=== PATIENT | male | born 1995 | race Caucasian/White ===

== ENCOUNTER 2018-02-28 12:06 | Emergency (ER) | payer OTHER ==
[~2018-02-28] VITALS: Ht 198.1 cm; Wt 170.1 kg
[2018-02-28] MEDS ORDERED: IBUP600 PO (14:04)
[2018-02-28] MEDS ORDERED: Robaxin500 MG PO (14:04)
== END 2018-02-28 14:12 | disposition home or self-care (01) ==
LOC: ER 12:06
DX: S03.41XA Sprain of jaw, right side, initial encounter (principal); F17.200 Nicotine dependence, unspecified, uncomplicated; X58.XXXA Exposure to other specified factors, initial encounter; Y93.89 Activity, other specified
CPT/HCPCS: 70100; 99283-25

== ENCOUNTER 2018-04-26 08:55 | Emergency (ER) | payer SELFPAY ==
[~2018-04-26] VITALS: Ht 200.7 cm; Wt 170.1 kg
[~2018-04-26 08:55] MED LIST: IBUP600 PO; Robaxin500 MG PO
[2018-04-26 10:01] LABS: Influenza A Negative (NEGATIVE); Influenza B Negative (NEGATIVE)
[2018-04-26] MEDS ORDERED: MONDOXYNE NL100 MG PO (10:07)
[2018-04-26] MEDS ORDERED: Mucinex D 1,201 EACH PO (10:07)
== END 2018-04-26 10:19 | disposition home or self-care (01) ==
LOC: ER 08:55
PROVIDERS: Physician Assistant
DX: J32.9 Chronic sinusitis, unspecified (principal); F17.200 Nicotine dependence, unspecified, uncomplicated
CPT/HCPCS: 87804; 99283

== ENCOUNTER 2019-04-27 10:38 | Emergency (ER) | payer OTHER ==
[~2019-04-27] VITALS: Ht 198.1 cm; Wt 154.2 kg
[~2019-04-27 10:38] MED LIST changes: +MONDOXYNE NL100 MG PO; +Mucinex D 1,201 EACH PO
[2019-04-27] MEDS ORDERED: Monodox100 MG PO (13:16)
== END 2019-04-27 13:21 | disposition home or self-care (01) ==
LOC: ER 10:38
DX: S60.451A Superficial foreign body of left index finger, initial encounter (principal); L08.9 Local infection of the skin and subcutaneous tissue, unspecified; Z87.891 Personal history of nicotine dependence; W45.8XXA Other foreign body or object entering through skin, initial encounter
CPT/HCPCS: 10120; 73130; 99283-25

== ENCOUNTER 2020-06-10 07:45 | Emergency (ER) | payer SELFPAY ==
[~2020-06-10] VITALS: Ht 198.1 cm; Wt 172.4 kg
[~2020-06-10 07:45] MED LIST changes: +Monodox100 MG PO
[2020-06-10] MEDS ORDERED: Prednisone20 MG PO (08:49)
[2020-06-10] MEDS ORDERED: AMOCLA875 PO (08:49)
== END 2020-06-10 09:13 | disposition home or self-care (01) ==
LOC: ER 07:45
DX: K04.7 Periapical abscess without sinus (principal); K01.1 Impacted teeth; F17.210 Nicotine dependence, cigarettes, uncomplicated
CPT/HCPCS: 99282; A9270; J1100

== ENCOUNTER 2020-08-31 07:31 | Observation (INO) | payer SELFPAY ==
[~2020-08-31] VITALS: Ht 198.1 cm; Wt 167.8 kg
[~2020-08-31 07:31] MED LIST changes: +AMOCLA875 PO; +Prednisone20 MG PO
[2020-08-31 08:31] LABS: BASOPHILS ABSOLUTE AUTO 0.04 K/mm3 (0.00-0.23); BASOPHILS PERCENT AUTO 0 % (0-2); EOSINOPHILS ABSOLUTE AUTO 0.12 K/mm3 (0.00-0.68); EOSINOPHILS PERCENT AUTO 1 % (0-6); Hematocrit 43.4 % (37.0-53.0); Hemoglobin 14.6 g/dL (13.5-17.5); IMMATURE GRAN ABSOLUTE AUTO 0.02 K/mm3 (0.00-0.10); IMMATURE GRAN PERCENT AUTO 0 % (0-1); LYMPHOCYTES PERCENT AUTO 14 % (21-46); MONOCYTES ABSOLUTE AUTO 0.83 K/mm3 (0.16-1.47); MONOCYTES PERCENT AUTO 9 % (4-13); Mean Corpuscular HGB 27.5 pg (26.0-34.0); Mean Corpuscular HGB Conc 33.6 g/dL (31.5-36.5); Mean Corpuscular Volume 82 fL (80-100); Mean Platelet Volume 11.8 fL (9.1-12.4); NEUTROPHILS ABSOLUTE AUTO 6.73 K/mm3 (1.96-9.15); NEUTROPHILS PERCENT AUTO 75 % (41-73); Platelet Count 162 K/mm3 (150-400); RDW Coefficient Variation 11.9 % (11.7-14.2); RDW Standard Deviation 35.8 fL (35.1-46.3); White Blood Cell Count 9.04 K/mm3 (4.00-11.30)
[2020-08-31 08:53] LABS: Alanine Aminotransfer (ALT/SGP 101 U/L (12-78); Albumin, Blood 3.7 g/dL (3.4-5.0); Albumin/Globulin Ratio 0.9 (0.8-1.8); Alk Phos 76 U/L (50-136); Anion Gap 4 mmol/L (6-16); Aspartate Aminotrans (AST/SGOT 41 U/L (12-37); Bilirubin, Total 1.1 mg/dL (0.1-1.0); Blood Urea Nitrogen 9 mg/dL (8-24); CO2, Blood 26 mmol/L (21-32); Chloride, Blood 107 mmol/L (98-108); Globulin, Blood 3.9 g/dL (2.2-4.0); Glomerular Filtration Rate >60 (60-); Glucose, Blood 105 mg/dL (70-99); Potassium, Blood 3.8 mmol/L (3.5-5.5); Sodium, Blood 137 mmol/L (136-145); Total Protein, Blood 7.6 g/dL (6.4-8.2)
[2020-08-31 10:39] LABS: SARS-Cov-2 (COVID-19) PCR, MMC NEGATIVE (NEGATIVE)
--- NOTE | 2020-08-31 15:08 | NUR ---
ARRIVED TO ROOM VIA W/C, ORIENTED TO ROOM AND CALL LIGHT, THEN PT WAS TAKEN TO DAY SURGERY.
--- NOTE | 2020-08-31 16:30 | NUR ---
DR MAST TO BEDSIDE, PLAN TO RESCHEDULE CASE UNTIL TOMORROW. PT VERBALIZES UNDERSTANDING. IV FLUIDS D/C, PT BACK TO [facility]. RN NOTIFIED.
[2020-08-31] MEDS ORDERED: POTASSIUM PO (16:57)
[2020-08-31] MEDS ORDERED: MAGNESIUM GLU27.5 M1 PO (16:57)
[2020-08-31] MEDS ORDERED: ZYRTEC10 M4 PO (16:59)
--- NOTE | 2020-08-31 17:17 | NUR ---
SUMMARY DR. MAST WAS NOT ABLE TO DO PT'S SURGERY TODAY, PT BROUGHT BACK TO ROOM FROM DAY SURGERY, DENIES ANY PAIN AT THIS TIME, INDEPENDENT IN ROOM, NPO AFTER MN FOR SURGERY TOMORROW, PT AWARE OF PLAN.
[2020-09-01 04:51] LABS: BASOPHILS ABSOLUTE AUTO 0.03 K/mm3 (0.00-0.23); BASOPHILS PERCENT AUTO 0 % (0-2); EOSINOPHILS ABSOLUTE AUTO 0.22 K/mm3 (0.00-0.68); EOSINOPHILS PERCENT AUTO 3 % (0-6); Hematocrit 38.3 % (37.0-53.0); Hemoglobin 12.8 g/dL (13.5-17.5); IMMATURE GRAN ABSOLUTE AUTO 0.03 K/mm3 (0.00-0.10); IMMATURE GRAN PERCENT AUTO 0 % (0-1); LYMPHOCYTES ABSOLUTE AUTO 1.62 K/mm3 (0.84-5.20); LYMPHOCYTES PERCENT AUTO 19 % (21-46); MONOCYTES ABSOLUTE AUTO 0.91 K/mm3 (0.16-1.47); MONOCYTES PERCENT AUTO 11 % (4-13); Mean Corpuscular HGB 27.9 pg (26.0-34.0); Mean Corpuscular HGB Conc 33.4 g/dL (31.5-36.5); Mean Corpuscular Volume 84 fL (80-100); Mean Platelet Volume 11.9 fL (9.1-12.4); NEUTROPHILS ABSOLUTE AUTO 5.61 K/mm3 (1.96-9.15); NEUTROPHILS PERCENT AUTO 67 % (41-73); Platelet Count 142 K/mm3 (150-400); RDW Coefficient Variation 11.8 % (11.7-14.2); RDW Standard Deviation 35.5 fL (35.1-46.3); Red Blood Cell Count 4.58 M/mm3 (4.30-5.90); White Blood Cell Count 8.42 K/mm3 (4.00-11.30)
[2020-09-01 05:12] LABS: Anion Gap 3 mmol/L (6-16); Blood Urea Nitrogen 9 mg/dL (8-24); Bun/Creatinine Ratio 8.7 (12.0-20.0); CO2, Blood 30 mmol/L (21-32); Calcium, Blood 8.1 mg/dL (8.5-10.1); Chloride, Blood 104 mmol/L (98-108); Creatinine, Blood 1.04 mg/dL (0.60-1.20); Glomerular Filtration Rate >60 (60-); Glucose, Blood 108 mg/dL (70-99); Potassium, Blood 3.6 mmol/L (3.5-5.5); Sodium, Blood 137 mmol/L (136-145)
--- NOTE | 2020-09-01 06:07 | NUR ---
PT VSS T/O NIGHT. PAIN MGD W/2 NORCO W/REP RELIEF. PT HAD NO C/O N/V, IS VOIDING URINE W/O DIFFICULTY. PT NPO POST MIDNIGHT FOR PLAN FOR SURGERY TODAY; IVF AND ABX CONT PER ORDERS.
--- NOTE | 2020-09-01 09:07 | NUR ---
A&OX4, C/O PAIN ON R ABD, MEDICATED WITH IV DILAUDID, DENIES ANY NAUSEA, PT CURRENTLY SLEEPING, AWAKENS EASILY, STATES PAIN IS "BETTER" CONT. TO MONITOR FOR ANY CHANGES.
--- NOTE | 2020-09-01 12:23 | NUR ---
PT IN DAY SURGERY.
--- NOTE | 2020-09-01 16:00 | NUR ---
POST OP S/P LAP APPY, AWAKE, DENIES ANY NEED FOR PAIN MEDS AT THIS TIME, DENIES ANY NAUSEA, ABD LAP INCISIONS C/D/I X3, ICE CHIPS AND CLEAR LIQUIDS GIVEN, CONT. TO MONITOR VS AND ANY CHANGES.
--- NOTE | 2020-09-01 17:44 | NUR ---
SUMMARY VSS, PT AMBULATED DOWN THE HALLS X2, TOLERATING DIET WELL, DENIES ANY NEED FOR PAIN MEDS, ABD DSGS C/D/I, PT WANTS TO GO HOME TONDR. [facility] NOTIFIED, CURRENTLY IN THE OR, NO ACUTE CHANGES THIS SHIFT.
--- NOTE | 2020-09-02 04:29 | NUR ---
POD 1 S/P LAP APPY. PT VSS T/O NIGHT. DRESSINGS CDI. PAIN MGD W/PO PAIN MEDS W/REP RELIEF. PT KADY REG PO, REP +FLATUS AND 1 SM ALL BM, IS VOIDING URINE W/O DIFFICULTY. PT AMB IN HALLS, KADY WELL. PT AWAKE FOR MOST OF NIGHT, IS PLEASANT AND COOPERATIVE W/CARE, IS EAGER TO D/C HOME TODAY.
[2020-09-02] MEDS ORDERED: HYDR1TAB94 PO (13:26)
== END 2020-09-02 14:42 | disposition home or self-care (01) ==
LOC: ER 07:31 → SURS 07:32 → ER 12:52 → SURS 12:52 → ER 09-01 07:33 → SURS 09-01 07:33
PROVIDERS: Emergency Medicine; Physician Assistant; ADMIT Surgery
DX: K35.33 Acute appendicitis with perforation, localized peritonitis, and gangrene, with abscess (principal); Z87.891 Personal history of nicotine dependence; Z91.038 Other insect allergy status; Z91.048 Other nonmedicinal substance allergy status; Z20.822 Contact with and (suspected) exposure to COVID-19
CPT/HCPCS: 36415; 74176; 80048; 80053; 83690; 85025; 88304; 96365; 96375; 96376; 99285-25; A9270; G0378; J1100; J1170; J1885; J2250; J2270; J2405; J2543; J2704; J3010; J7030; J7120; U0004

== ENCOUNTER 2020-09-10 16:32 | Emergency (ER) | payer SELFPAY ==
[~2020-09-10] VITALS: Ht 198.1 cm; Wt 167.8 kg
[~2020-09-10 16:32] MED LIST changes: +HYDR1TAB94 PO; +MAGNESIUM GLU27.5 M1 PO; +POTASSIUM PO; +ZYRTEC10 M4 PO
[2020-09-10 17:56] LABS: BASOPHILS ABSOLUTE AUTO 0.04 K/mm3 (0.00-0.23); BASOPHILS PERCENT AUTO 1 % (0-2); EOSINOPHILS ABSOLUTE AUTO 0.19 K/mm3 (0.00-0.68); EOSINOPHILS PERCENT AUTO 3 % (0-6); Hematocrit 43.7 % (37.0-53.0); Hemoglobin 14.7 g/dL (13.5-17.5); IMMATURE GRAN ABSOLUTE AUTO 0.02 K/mm3 (0.00-0.10); IMMATURE GRAN PERCENT AUTO 0 % (0-1); LYMPHOCYTES ABSOLUTE AUTO 1.43 K/mm3 (0.84-5.20); LYMPHOCYTES PERCENT AUTO 20 % (21-46); MONOCYTES ABSOLUTE AUTO 0.54 K/mm3 (0.16-1.47); MONOCYTES PERCENT AUTO 7 % (4-13); Mean Corpuscular HGB 27.7 pg (26.0-34.0); Mean Corpuscular HGB Conc 33.6 g/dL (31.5-36.5); Mean Corpuscular Volume 83 fL (80-100); Mean Platelet Volume 12.3 fL (9.1-12.4); NEUTROPHILS ABSOLUTE AUTO 5.04 K/mm3 (1.96-9.15); NEUTROPHILS PERCENT AUTO 69 % (41-73); Platelet Count 180 K/mm3 (150-400); RDW Coefficient Variation 11.8 % (11.7-14.2); RDW Standard Deviation 35.3 fL (35.1-46.3); White Blood Cell Count 7.26 K/mm3 (4.00-11.30)
[2020-09-10 18:11] LABS: Alanine Aminotransfer (ALT/SGP 105 U/L (12-78); Albumin, Blood 3.8 g/dL (3.4-5.0); Alk Phos 84 U/L (50-136); Anion Gap 6 mmol/L (6-16); Aspartate Aminotrans (AST/SGOT 57 U/L (12-37); Bilirubin, Total 0.5 mg/dL (0.1-1.0); Blood Urea Nitrogen 16 mg/dL (8-24); Bun/Creatinine Ratio 16.1 (12.0-20.0); CO2, Blood 27 mmol/L (21-32); Calcium, Blood 9.1 mg/dL (8.5-10.1); Chloride, Blood 106 mmol/L (98-108); Creatinine, Blood 0.99 mg/dL (0.60-1.20); Glomerular Filtration Rate >60 (60-); Glucose, Blood 102 mg/dL (70-99); Potassium, Blood 3.8 mmol/L (3.5-5.5); Sodium, Blood 139 mmol/L (136-145); Total Protein, Blood 7.8 g/dL (6.4-8.2)
[2020-09-10] MEDS ORDERED: CEPH500 PO (20:33)
== END 2020-09-10 20:53 | disposition home or self-care (01) ==
LOC: ER 16:32
PROVIDERS: Physician Assistant
DX: T81.49XA Infection following a procedure, other surgical site, initial encounter (principal); L03.311 Cellulitis of abdominal wall; Z91.030 Bee allergy status; Z91.09 Other allergy status, other than to drugs and biological substances; Z79.899 Other long term (current) drug therapy; Z87.891 Personal history of nicotine dependence
CPT/HCPCS: 36415; 74177; 80053; 85025; 99283-25; A9270; Q9967

== ENCOUNTER 2021-11-03 20:49 | Emergency (ER) | payer OTHER ==
[~2021-11-03] VITALS: Ht 200.7 cm; Wt 122.5 kg
[~2021-11-03 20:49] MED LIST changes: +CEPH500 PO
[2021-11-04] MEDS ORDERED: IBU800 MG PO (00:58)
== END 2021-11-04 01:30 | disposition home or self-care (01) ==
LOC: ER 20:49
DX: S63.601A Unspecified sprain of right thumb, initial encounter (principal); Z87.891 Personal history of nicotine dependence; Z79.899 Other long term (current) drug therapy; Z91.038 Other insect allergy status; Z91.018 Allergy to other foods; W23.0XXA Caught, crushed, jammed, or pinched between moving objects, initial encounter; Y99.0 Civilian activity done for income or pay
CPT/HCPCS: 73140; 99283-25

== ENCOUNTER 2022-01-29 07:08 | Emergency (ER) | payer SELFPAY ==
[~2022-01-29] VITALS: Ht 198.1 cm; Wt 124.7 kg
[~2022-01-29 07:08] MED LIST changes: +IBU800 MG PO
[2022-01-29 07:54] LABS: BASOPHILS ABSOLUTE AUTO 0.05 K/mm3 (0.00-0.23); BASOPHILS PERCENT AUTO 1 % (0-2); EOSINOPHILS ABSOLUTE AUTO 0.19 K/mm3 (0.00-0.68); EOSINOPHILS PERCENT AUTO 3 % (0-6); Hematocrit 47.2 % (37.0-53.0); Hemoglobin 15.8 g/dL (13.5-17.5); IMMATURE GRAN ABSOLUTE AUTO 0.01 K/mm3 (0.00-0.10); IMMATURE GRAN PERCENT AUTO 0 % (0-1); LYMPHOCYTES ABSOLUTE AUTO 1.76 K/mm3 (0.84-5.20); LYMPHOCYTES PERCENT AUTO 26 % (21-46); MONOCYTES ABSOLUTE AUTO 0.49 K/mm3 (0.16-1.47); MONOCYTES PERCENT AUTO 7 % (4-13); Mean Corpuscular HGB 28.5 pg (26.0-34.0); Mean Corpuscular HGB Conc 33.5 g/dL (31.5-36.5); Mean Corpuscular Volume 85 fL (80-100); Mean Platelet Volume 12.2 fL (9.1-12.4); NEUTROPHILS ABSOLUTE AUTO 4.17 K/mm3 (1.96-9.15); NEUTROPHILS PERCENT AUTO 63 % (41-73); Platelet Count 189 K/mm3 (150-400); RDW Coefficient Variation 11.9 % (11.7-14.2); RDW Standard Deviation 36.6 fL (35.1-46.3); Red Blood Cell Count 5.55 M/mm3 (4.30-5.90); White Blood Cell Count 6.67 K/mm3 (4.00-11.30)
[2022-01-29 08:12] LABS: Source, Urine Clean Catch
[2022-01-29 08:19] LABS: Appearance, Urine Clear (Clear); Bilirubin, Urine Neg (Neg); Blood, Urine Neg (Neg); Color, Urine Yellow (P-Yellow); Glucose Qualitative, Urine Neg (Neg); Ketones, Urine Neg (Neg); Leukocyte Esterase, Urine Neg (Neg); Nitrite, Urine Neg (Neg); Protein, Urine Neg (Neg); Specific Gravity, Urine 1.015 (1.003-1.022); Urobilinogen, Urine NORM (Normal); pH, Urine 6.5 (5.0-8.0)
[2022-01-29 08:41] LABS: Albumin, Blood 4.3 g/dL (3.4-5.0); Albumin/Globulin Ratio 1.2 (0.8-1.8); Bilirubin, Total 0.6 mg/dL (0.1-1.0); Bun/Creatinine Ratio 10.7 (12.0-20.0); Creatinine, Blood 0.84 mg/dL (0.60-1.20); Globulin, Blood 3.5 g/dL (2.2-4.0); Potassium, Blood 3.9 mmol/L (3.5-5.5); Total Protein, Blood 7.8 g/dL (6.4-8.2)
[2022-01-29] MEDS ORDERED: HYDR1TAB94 PO (08:50)
== END 2022-01-29 09:02 | disposition home or self-care (01) ==
LOC: ER 07:08
PROVIDERS: Emergency Medicine
DX: R10.9 Unspecified abdominal pain (principal); R91.1 Solitary pulmonary nodule; Z91.030 Bee allergy status; Z79.899 Other long term (current) drug therapy; Z87.891 Personal history of nicotine dependence
CPT/HCPCS: 36415; 74176; 80053; 81003; 85025; A9270; J1885; J7030

== ENCOUNTER 2022-03-23 07:10 | Emergency (ER) | payer SELFPAY ==
[~2022-03-23] VITALS: Ht 185.4 cm; Wt 117.9 kg
[2022-03-23] MEDS ORDERED: AMOCLA875 PO (07:44)
== END 2022-03-23 07:58 | disposition home or self-care (01) ==
LOC: ER 07:10
DX: K08.89 Other specified disorders of teeth and supporting structures (principal); Z91.030 Bee allergy status; Z91.018 Allergy to other foods; Z87.891 Personal history of nicotine dependence
CPT/HCPCS: A9270; J1885

== ENCOUNTER 2024-10-15 14:23 | Emergency (ER) | payer OTHER ==
[~2024-10-15] VITALS: Ht 200.7 cm; Wt 169.2 kg
[2024-10-15 14:57] LABS: BASOPHILS ABSOLUTE AUTO 0.06 K/mm3 (0.00-0.23); BASOPHILS PERCENT AUTO 1 % (0-2); EOSINOPHILS ABSOLUTE AUTO 0.26 K/mm3 (0.00-0.68); EOSINOPHILS PERCENT AUTO 3 % (0-6); Hematocrit 44.8 % (37.0-53.0); Hemoglobin 15.6 g/dL (13.5-17.5); IMMATURE GRAN ABSOLUTE AUTO 0.02 K/mm3 (0.00-0.10); IMMATURE GRAN PERCENT AUTO 0 % (0-1); LYMPHOCYTES ABSOLUTE AUTO 1.41 K/mm3 (0.84-5.20); LYMPHOCYTES PERCENT AUTO 18 % (21-46); MONOCYTES ABSOLUTE AUTO 0.63 K/mm3 (0.16-1.47); MONOCYTES PERCENT AUTO 8 % (4-13); Mean Corpuscular HGB Conc 34.8 g/dL (31.5-36.5); Mean Corpuscular Volume 87 fL (80-100); NEUTROPHILS ABSOLUTE AUTO 5.35 K/mm3 (1.96-9.15); NEUTROPHILS PERCENT AUTO 69 % (41-73); NRBC ABSOLUTE 0.00 K/mm3 (0.00-0.02); NRBC Auto 0.0 /100 WBC (0.0-0.2); Platelet Count 146 K/mm3 (150-400); RDW Coefficient Variation 12.2 % (11.7-14.2); RDW Standard Deviation 38.8 fL (35.1-46.3)
[2024-10-15 15:38] LABS: Source, Urine Clean Catch
[2024-10-15 15:38] LABS: Alanine Aminotransfer (ALT/SGP 141.0 U/L (12-78); Albumin, Blood 3.4 g/dL (3.4-5.0); Albumin/Globulin Ratio 0.9 (0.8-1.8); Anion Gap 9.0 mmol/L (3-11); Aspartate Aminotrans (AST/SGOT 105.0 U/L (12-37); Bilirubin, Total 1.2 mg/dL (0.1-1.0); Blood Urea Nitrogen 9.0 mg/dL (8-24); CO2, Blood 26.0 mmol/L (21-32); Calcium, Blood 8.7 mg/dL (8.5-10.1); Chloride, Blood 106.0 mmol/L (98-108); Creatinine, Blood 0.78 mg/dL (0.60-1.20); Globulin, Blood 3.9 g/dL (2.2-4.0); Glucose, Blood 101.0 mg/dL (70-99); Potassium, Blood 3.8 mmol/L (3.5-5.5); Sodium, Blood 137.0 mmol/L (136-145); Total Protein, Blood 7.3 g/dL (6.4-8.2)
[2024-10-15 15:41] LABS: Bilirubin, Urine Neg (Neg); Color, Urine Yellow (P-Yellow); Glucose Qualitative, Urine Neg (Neg); Ketones, Urine Neg (Neg); Leukocyte Esterase, Urine Neg (Neg); Protein, Urine 1+ (Neg); Specific Gravity, Urine 1.025 (1.003-1.022); Urobilinogen, Urine 2+ (Normal)
[2024-10-15] MEDS ORDERED: ACET500 PO (17:42)
[2024-10-15] MEDS ORDERED: FLOMAX0.4 MG PO (17:42)
[2024-10-15] MEDS ORDERED: IBUP600 PO (17:42)
[2024-10-15] MEDS ORDERED: ONDA4 PO (17:42)
[2024-10-15 18:03] VITALS: BP 113/87
== END 2024-10-15 18:04 | disposition home or self-care (01) ==
LOC: ER 14:23
PROVIDERS: Emergency Medicine
DX: R10.9 Unspecified abdominal pain (principal); R39.89 Other symptoms and signs involving the genitourinary system; Z91.030 Bee allergy status; Z91.018 Allergy to other foods; Z87.891 Personal history of nicotine dependence
CPT/HCPCS: 76770; 80053; 83690; 85025; 99284-25